=== PATIENT | male | born 1975 | race Caucasian/White ===

== ENCOUNTER 2022-07-04 09:10 | Emergency (ER) | payer OTHER, SELFPAY ==
[2022-07-04 09:23] VITALS: BP 178/100; PULSE 71; RESP 20; TEMP 37.1; O2SAT 98; BMI 28.8
--- NOTE | 2022-07-04 09:41 | ED.GENADULT ---
HPI - General Adult General Time Seen by Provider: 09:41 Date Seen: 07/04/22 Chief complaint: Abdominal Pain Stated complaint: Abdominal pain Time Seen by Provider: 07/04/22 09:40 Source: patient and RN notes reviewed Mode of arrival: ambulatory Limitations: no limitations History of Present Illness HPI narrative: Patient is a 47-year-old male coming and with abdominal pain. It has been progressive, probably over 6 weeks. He went to clinic at [facility] about 2 weeks ago. He states his lipase was elevated in clinic and he went to [facility] and had a CT. He states the CT showed diverticulosis but nothing else. He is scheduled for a colonoscopy through clinic but it is not going to happen until September. He notes that his mom of pancreatic cancer, his sisters have had 1 with her pancreas out in the other from pancreatitis. One sister who had her pancreas removed sounds as if she had severe pancreatitis and had not islet cell transplant. Right now his pain is shooting from his rectal area and goes up into his abdomen, he is feeling it into his back now as well. No fevers. No nausea or vomiting. He states sometimes when he eats he actually feels better. He has been having more difficulty having bowel movements. [place] like he was going to have diarrhea this morning but then only produces a small amount of stool. There was no blood. He actually was awakened by the pain for the 1st time today which is different. He used to do social drinking but quit months ago as he just stated he did not feel well after drinking. Related Data Home Medications Medication Instructions Recorded Confirmed rosuvastatin .ROUTE 07/04/22 Previous Rx's Medication Instructions Recorded ketorolac 10 mg tablet 10 mg PO Q6H PRN pain 5 days #20 07/04/22 tabs tamsulosin 0.4 mg capsule 0.4 mg PO DAILY #14 caps 07/04/22 Allergies Allergy/AdvReac Type Severity Reaction Status Date / Time No Known Drug Allergies [facility]04[facility]22 11[facility] Smoking Status: Unknown if ever smoked Non-prescribed substance use: denies use service: No Exam Const: Vital Signs, click to edit/add: Vital Signs - 24 hr 07/04/22 09:23 07/04/22 10:00 07/04/22 12:01 Temperature 98.7 F Pulse Rate [Pulse Oximeter] 71 63 Respiratory Rate 20 14 Blood Pressure [formerly [facility]] 178/100 H 143/93 H Pulse Oximetry 98 98 98 Oxygen Delivery Me thod Room Air Room Air 07/04/22 11:00 Temperature Pulse Rate [Pulse Oximeter] 69 Respiratory Rate 18 Blood Pressure [formerly [facility]] 139/89 Pulse Oximetry 99 Oxygen Delivery Me thod Room Air Documenting provider has reviewed patient's vital signs: yes Common normals: no apparent distress, average body habitus, oriented x3, no limitations, healthy appearing, alert and well nourished General appearance: cooperative, comfortable and well ket HENMT: Common normals: normocephalic, head/scalp atraumatic, hearing grossly normal bilaterally, external nose normal, nasal mucous membranes and turbinates normal, moist oral mucous membranes, oropharynx normal, dentition normal and gingiva normal Head and scalp: normocephalic and atraumatic Nose: external nose normal and nasal mucous membranes and turbinates normal Eye: Common normals: PERRL, EOMs intact bilaterally, conjunctivae normal and no scleral icterus Conjunctiva: conjunctiva(e) normal Pupil: PERRL Neck & C-Spine: Common normals: full ROM, no lymphadenopathy, supple, no meningeal signs and no JVD Resp: Common normals: normal respiratory effort, no retractions, no use of accessory muscles and clear to auscultation bilaterally Auscultation: clear to auscultation bilaterally Cardio: Common normals: no JVD, regular rate, regular rhythm, S1 normal heart sound, S2 normal heart sound, no gallops, no clicks and no murmurs Rate: regular rate Rhythm: regular rhythm Heart sounds: S1 normal and S2 normal GI: Common normals: Normal to inspection, nondistended, normoactive bowel sounds present, soft to palpation, non-tender, no hepatosplenomegaly and no masses Palpation: soft and no hepatosplenomegaly Rectal Exam - Male: visual inspection normal Extremity: Common normals: normal to inspection, full ROM, normal capillary refill, no joint enlargement, no clubbing, cyanosis or edema, no calf tenderness and no pedal edema Neuro: Common normals: oriented x3 Sensorium/orientation: alert Meningeal signs: no meningeal signs Psych: Appearance: well kempt Course Course Hospital Course: We will obtain lab work, guide our imaging based on lab work. Will attempt to give him Toradol for pain management. With the rectal pain, I think this does expand the differential to rectal issues including musculoskeletal rectal issues. With elevated lipase is family history will still consider pancreatic issues. He does not clinically have a surgical abdomen on examination but will definitely be getting a full complement of labs and imaging as guided by labs. Reevaluation(s) Reevaluation #1: Will be obtaining CT abdomen pelvis with IV contrast. Reviewed his lipase is elevated. He does not remember what the level was prior. His pain is controlled with the Toradol. Will initiate a L of IV fluids. Time: 11:20 Reevaluation #2: Reviewed with patient his CT showing a significant sized stone of 6.1 mm in the distal right ureter. His pain is still controlled with the Toradol. Reviewed that this has a high chance of not passing on its own, will likely need urology referral. We unfortunately do not have Urology coming into [place] any longer. His primary care provider is going to have to get him referred to Urology. He appropriately questions if IA with suspicious that this would not pass, why he was not going somewhere. Unfortunately right now with the systems, everyone is on divert, this is not medically emergent and could be managed outpatient. His pain is controlled, he has no evidence of infection. Tried explained the unfortunate state of affairs with the systems being overwhelmed with patients, unable to except transfers. Also reviewed with him my concern about the lipase, there is no evidence of any pancreatic changes on CT. With this family history though I do think he needs to see a specialist. Did review this with our surgeon on-call and she agreed that he should be referred to a specialist in GI. This too can be done outpatient. Time: 12:44 Vital Signs Vital signs: Initial Vital Signs Temperature 98.7 F 07/04/22 09:23 Temperature Source Temporal Artery Scan 07/04/22 09:23 Pulse Rate 71 07/04/22 09:23 Respiratory Rate 20 07/04/22 09:23 Blood Pressure 178/100 H 07/04/22 09:23 Blood Pressure Mean 126 07/04/22 09:23 Blood Pressure Position Supine 07/04/22 09:23 Pulse Oximetry 98 07/04/22 09:23 Oxygen Delivery Method 07/04/22 09:23 Vital Signs Temperature 98.7 F 10/11/22 09:23 Pulse Rate 71 07/04/22 09:23 Respiratory Rate 20 07/04/22 09:23 Blood Pressure 178/100 H 07/04/22 09:23 Pulse Oximetry 98 07/04/22 09:23 Oxygen Delivery Method 07/04/22 09:23 Temperature 98.7 F 07/04/22 09:23 Pulse Rate 63 07/04/22 12:01 Respiratory Rate 14 07/04/22 12:01 Blood Pressure 143/93 H 07/04/22 12:01 Pulse Oximetry 98 07/04/22 12:01 Oxygen Delivery Method 07/04/22 12:01 Medical Decision Making Lab Data Lab results reviewed: Yes I reviewed the patient's lab results Labs: Lab Results 07/04/22 07/04/22 07/04/22 Range/Units 10:00 10:00 10:00 WBC 11.26 H (4.50-11.00) K/uL RBC 4.85 (4.30-5.90) m/uL Hgb 15.6 (13.5-17.5) gm/dL Hct 43.9 (37.0-53.0) % MCV 91 (80-100) fL MCH 32 (26-34) pg MCHC 36 (32-36) gm/dL RDW Coeff of Lul 12.0 (11.5-15.5) % Plt Count 276 (140-440) K/uL Neut % (Auto) 74.9 H (42.0-72.0) % Lymph % (Auto) 12.2 L (20-44) % Larue % (Auto) 7.2 (0.0-11.0) % Eos % (Auto) 5.2 (0.0-7.0) % Baso % (Auto) 0.4 (0.0-3.0) % Neut # (Auto) 8.40 H (1.7-7.0) K/uL Lymph # (Auto) 1.40 (0.90-2.90) K/uL Larue # (Auto) 0.80 (0.00-0.90) K/UL Eos # (Auto) 0.60 H (0.00-0.50) K/uL Baso # (Auto) 0.00 (0.00-0.30) K/uL Abs Immat Gran (auto) 0.01 (0.00-0.30) K/uL Sodium 137 (135-149) mmol/L Potassium 4.3 (3.6-5.1) mmol/L Chloride 105 (96-114) mmol/L Carbon Dioxide 26 (20-32) mmol/L BUN 17 (5-24) mg/dL Creatinine 1.1 (0.5-1.5) mg/dL Estimated Creat Clear 83.02 Estimated GFR 83 ml/min Glucose 89 (60-115) mg/dL Lactate 0.9 (0.5-1.9) mmol/L Calcium 9.8 (8.4-10.6) mg/dL Total Bilirubin 0.5 (0.1-1.5) mg/dL AST 34 (12-35) U/L ALT 43 (4-50) U/L Alkaline Phosphatase 71 (40-150) U/L C-Reactive Protein < 0.5 L (0.5-1.0) mg/dL Total Protein 7.3 (6.0-8.3) g/dL Albumin 4.5 (3.3-5.0) g/dL Lipase 1651 H (23-300) U/L Urine Color (Yellow) Urine Appearance (Clear) Urine pH (5.0-8.5) Ur Specific [place] (1.000-1.030) Urine Protein (Negative) Urine Glucose (UA) (Negative) Urine Ketones (Negative) Urine Blood (Negative) Urine Nitrite (Negative) Urine Bilirubin (Negative) Urine Urobilinogen (0.2-1.0) Ur Leukocyte Esterase (Negative) Urine RBC (0-2) Urine WBC (0-5) Ur Squamous Epith Cells (None-Few) Urine Bacteria (None) 07/04/22 Range/Units 11:40 WBC (4.50-11.00) K/uL RBC (4.30-5.90) m/uL Hgb (13.5-17.5) gm/dL Hct (37.0-53.0) % MCV (80-100) fL MCH (26-34) pg MCHC (32-36) gm/dL RDW Coeff of Lul (11.5-15.5) % Plt Count (140-440) K/uL Neut % (Auto) (42.0-72.0) % Lymph % (Auto) (20-44) % Larue % (Auto) (0.0-11.0) % Eos % (Auto) (0.0-7.0) % Baso % (Auto) (0.0-3.0) % Neut # (Auto) (1.7-7.0) K/uL Lymph # (Auto) (0.90-2.90) K/uL Larue # (Auto) (0.00-0.90) K/UL Eos # (Auto) (0.00-0.50) K/uL Baso # (Auto) (0.00-0.30) K/uL Abs Immat Gran (auto) (0.00-0.30) K/uL Sodium (135-149) mmol/L Potassium (3.6-5.1) mmol/L Chloride (96-114) mmol/L Carbon Dioxide (20-32) mmol/L BUN (5-24) mg/dL Creatinine (0.5-1.5) mg/dL Estimated Creat Clear Estimated GFR ml/min Glucose (60-115) mg/dL Lactate (0.5-1.9) mmol/L Calcium (8.4-10.6) mg/dL Total Bilirubin (0.1-1.5) mg/dL AST (12-35) U/L ALT (4-50) U/L Alkaline Phosphatase (40-150) U/L C-Reactive Protein (0.5-1.0) mg/dL Total Protein (6.0-8.3) g/dL Albumin (3.3-5.0) g/dL Lipase (23-300) U/L Urine Color Yellow (Yellow) Urine Appearance Clear (Clear) Urine pH 6.0 (5.0-8.5) Ur Specific [place] 1.020 (1.000-1.030) Urine Protein Negative (Negative) Urine Glucose (UA) Negative (Negative) Urine Ketones Negative (Negative) Urine Blood 2+ A (Negative) Urine Nitrite Negative (Negative) Urine Bilirubin Negative (Negative) Urine Urobilinogen 0.2 (0.2-1.0) Ur Leukocyte Esterase Negative (Negative) Urine RBC 5-10 A (0-2) Urine WBC 0-2 (0-5) Ur Squamous Epith Cells Few (None-Few) Urine Bacteria Few A (None) Imaging Data CT scan - abdomen: Attestation: I have reviewed the pertinent imaging results. Radiologist's impression: Patient: NISHA SORENSEN Facility:?[facility] Patient ID:?[id number] Site Patient ID:?[id number]. Site :?[id number] Study:?CT Abdomen/Pelvis W/95CC [id number]/11/2022 11:42:55 AM Ordering Physician:Thien Hill Final Report: Indication: ABDOMEN PAIN, ELEVATED LIPASE Technique: Postcontrast CT abdomen and pelvis. 95 cc Isovue 370 intravenous contrast. Please note that all CT scans at this facility use dose modulation, iterative reconstruction, and/or weight-based dosing when appropriate to reduce radiation dose to as low as reasonably achievable. Comparison: None Findings: Mild atelectasis in both lung bases. No pleural effusion or infiltrate. Normal liver and gallbladder. Pancreas is unremarkable. No evidence of pancreatitis. Pancreatic parenchymal enhancement is normal. Normal spleen and adrenal glands. Normal left kidney and left ureter. Slightly decreased right renal parenchymal enhancement along with right perinephric stranding and right hydronephrosis. Right hydroureter is also present. There is a stone within the right distal ureter measuring 6.1 millimeters. No bladder stone. No bowel obstruction or free air. No abscess. The appendix is normal. No diverticulitis. No abdominal wall hernia. Degenerative disc disease L5-S1. Impression: Obstructing 6.1 millimeter stone in the distal right ureter with right hydroureter, right hydronephrosis and right perinephric stranding along with decreased right renal cortical enhancement consistent with obstructive nephropathy. Normal appendix. Normal pancreas. Please note that all CT scans at this facility use dose modulation, iterative reconstruction, and/or weight-based dosing when appropriate to reduce radiation dose to as low as reasonably achievable. Dictated by Regan Mcgrath MD @ 07/04/2022 12:04:24 PM (Electronic Signature) Critical Care Time Critical Care Time Critical Care Time: No Discharge Plan Discharge Clinical Impression: Calculus of kidney, Serum lipase elevation Condition: Stable Instructions: Pancreatitis (ED), Kidney Stones (ED), Renal Colic (ED) Additional Instructions: Drink fluids for a goal of keeping your urine clear looking. Take Flomax daily until kidney stone has resolved. For mild pain can try Tylenol per bottle directions. For more severe pain, can use the Toradol as prescribed. Need to schedule a follow-up with your primary care provider AMY. You will need a referral to urologist for the kidney stone. A 6.1 mm kidney stone has a higher likelihood of not passing. Should you develop severe uncontrolled pain with the outlined plan, have vomiting, develops fever with an active kidney stone, need to be re-evaluated. I would also recommend given your elevated lipase and your family history that your primary care provider refer you to a partnership marketing manager specializing in pancreatic issues. Activity Level: Activity as Tolerated Discharge Diet: Regular Prescriptions: New tamsulosin 0.4 mg capsule 0.4 mg PO DAILY Qty: 14 0RF ketorolac 10 mg tablet 10 mg PO Q6H PRN (Reason: pain) 5 Days Qty: 20 0RF No Action rosuvastatin .ROUTE Follow Up/Referrals: CELY BURKETT DO [Primary Care Provider] - Stand Alone Forms: [facility] Info Instructions
[2022-07-04 10:00] VITALS: O2SAT 98
[2022-07-04] MEDS: KETOROLAC 15 MG/ML inj IVP (10:00)
[2022-07-04 10:11] LABS: Lactate* 0.9 mmol/L (0.5-1.9)
--- NOTE | 2022-07-04 10:11 | PC.NURSE ---
pt asking, how long is it going to take for this to work while administering toradol, blood to lab
[2022-07-04 10:15] LABS: Basophils Percent Auto 0.4 % (0.0-3.0); Eosinophils Percent Auto 5.2 % (0.0-7.0); Hematocrit 43.9 % (37.0-53.0); Hemoglobin* 15.6 gm/dL (13.5-17.5); Immature Granulocytes Abs Auto 0.01 K/uL (0.00-0.30); Lymphocytes Percent Auto 12.2 % (20-44); Mean Corpuscular HGB Conc 36 gm/dL (32-36); Mean Corpuscular Hemoglobin 32 pg (26-34); Mean Corpuscular Volume 91 fL (80-100); Monocytes Percent Auto 7.2 % (0.0-11.0); Neutrophils Percent Auto 74.9 % (42.0-72.0); Platelet Count* 276 K/uL (140-440); Red Blood Count 4.85 m/uL (4.30-5.90); White Blood Count* 11.26 K/uL (4.50-11.00)
[2022-07-04 10:26] LABS: Slide Review Reflex No
[2022-07-04 10:32] LABS: Albumin* 4.5 g/dL (3.3-5.0); Chloride* 105 mmol/L (96-114)
[2022-07-04 10:33] LABS: Potassium* 4.3 mmol/L (3.6-5.1); Sodium* 137 mmol/L (135-149)
[2022-07-04 10:35] LABS: Alkaline Phosphatase* 71 U/L (40-150); Aspartate Amino Transferase* 34 U/L (12-35); Bilirubin Total* 0.5 mg/dL (0.1-1.5); Carbon Dioxide* 26 mmol/L (20-32); Creatinine* 1.1 mg/dL (0.5-1.5); Est. Creatinine Clearance* 83.02; Estimated Glomerular Filt Rate 83 ml/min; Lipase* 1651 U/L (23-300); Total Protein* 7.3 g/dL (6.0-8.3)
[2022-07-04 10:36] LABS: Alanine Aminotransferase* 43 U/L (4-50); Blood Urea Nitrogen* 17 mg/dL (5-24); Calcium* 9.8 mg/dL (8.4-10.6); Glucose* 89 mg/dL (60-115)
[2022-07-04 10:39] LABS: C Reactive Protein* < 0.5 mg/dL (0.5-1.0)
[2022-07-04 11:00] VITALS: BP 139/89; PULSE 69; RESP 18; O2SAT 99
--- NOTE | 2022-07-04 11:12 | CRLHL7_ITS ---
For Patients: As a result of the Century Cures Act, medical imaging exams and procedure reports are released immediately into your electronic medical record. You may view this report before your referring provider. If you have questions, please contact your health care provider. Indication: ABDOMEN PAIN, ELEVATED LIPASE Technique: Postcontrast CT abdomen and pelvis. 95 cc Isovue 370 intravenous contrast. Please note that all CT scans at this facility use dose modulation, iterative reconstruction, and/or weight-based dosing when appropriate to reduce radiation dose to as low as reasonably achievable. Comparison: None Findings: Mild atelectasis in both lung bases. No pleural effusion or infiltrate. Normal liver and gallbladder. Pancreas is unremarkable. No evidence of pancreatitis. Pancreatic parenchymal enhancement is normal. Normal spleen and adrenal glands. Normal left kidney and left ureter. Slightly decreased right renal parenchymal enhancement along with right perinephric stranding and right hydronephrosis. Right hydroureter is also present. There is a stone within the right distal ureter measuring 6.1 millimeters. No bladder stone. No bowel obstruction or free air. No abscess. The appendix is normal. No diverticulitis. No abdominal wall hernia. Degenerative disc disease L5-S1. Impression: Obstructing 6.1 millimeter stone in the distal right ureter with right hydroureter, right hydronephrosis and right perinephric stranding along with decreased right renal cortical enhancement consistent with obstructive nephropathy. Normal appendix. Normal pancreas. Please note that all CT scans at this facility use dose modulation, iterative reconstruction, and/or weight-based dosing when appropriate to reduce radiation dose to as low as reasonably achievable. Dictated by Regan Mcgrath MD @ 07/04/2022 12:04:24 PM (Electronically Signed)
[2022-07-04 11:46] LABS: Appearance Urine Clear (Clear); Bilirubin Urine Negative (Negative); Blood Urine 2+ (Negative); Color Urine Yellow (Yellow); Glucose Urine Negative (Negative); Ketones Urine Negative (Negative); Leukocyte Esterase Urine Negative (Negative); Nitrite Urine Negative (Negative); Protein Urine Negative (Negative); Urobilinogen Urine 0.2 (0.2-1.0)
[2022-07-04 11:56] LABS: Bacteria Urine Few; Squamous Epithelial Cell Urine Few (None-Few); WBC Urine 0-2 (0-5)
[2022-07-04 12:01] VITALS: BP 143/93; PULSE 63; RESP 14; O2SAT 98
[2022-07-04] MEDS: 0.9 % SODIUM CHLORIDE 1000 ml 1,000 ML 500 ML IV (12:01)
[2022-07-04 13:00] VITALS: BP 162/99; PULSE 73; RESP 16; O2SAT 99
--- NOTE | 2022-07-04 13:16 | PC.NURSE ---
pt expressing his dissatisfaction about not zhanna kept in the hospital due to his diagnosis, offered pt advocate, pt refused, discussed with patient at length reasons to return and that if he seems to be worsening he is always welcome to return or consider presenting at a hospital with urological services in house, pt verbalizes understanding of this, frustrated that he was told to come here from [place] when if he had known he would have presented elsewhere
== END 2022-07-04 13:13 | disposition home or self-care (01) ==
PROVIDERS: Emergency Provider Family Medicine; PCP Student in an Organized Health Care Education/Training Program
DX: N20.0 Calculus of kidney (principal); R74.8 Abnormal levels of other serum enzymes
CPT/HCPCS: 36415; 74177; 80053; 81001; 83605; 83690; 85025; 86140; 87086; 94761; 96374; 99283; 99284; J1885; J7030; Q9967

== ENCOUNTER 2024-09-04 15:00 | Outpatient (RCR) | payer BC, SELFPAY | END 2024-11-06 14:45 | disposition home or self-care (01) | PROVIDERS: PCP Student in an Organized Health Care Education/Training Program; Visit Provider Student in an Organized Health Care Education/Training Program | DX: M25.511 Pain in right shoulder (principal); M25.512 Pain in left shoulder; G89.29 Other chronic pain; M25.612 Stiffness of left shoulder, not elsewhere classified; M25.611 Stiffness of right shoulder, not elsewhere classified; Z51.89 Encounter for other specified aftercare | CPT/HCPCS: 97110; 97140; 97161 ==